=== PATIENT | female | born 1995 | race Hispanic/Latino ===

== ENCOUNTER 2019-09-03 20:07 | Emergency (ER) | payer OTHER, SELFPAY | END 2019-09-03 20:52 | disposition home or self-care (01) | LOC: MADERS 20:07 | DX: R51 Headache (principal); R03.0 Elevated blood-pressure reading, without diagnosis of hypertension; J45.909 Unspecified asthma, uncomplicated | CPT/HCPCS: 99283 ==

== ENCOUNTER 2020-04-04 00:09 | Emergency (ER) | payer OTHER, SELFPAY ==
[2020-04-04 01:24] LABS: #Basophils 0.1 thou/uL (0.0-0.2); #Eosinphils 0.2 thou/uL (0.0-0.7); #Lymphocytes 2.7 thou/uL (1.20-3.40); #Monocytes 0.9 thou/uL (0.11-0.59); #Neutrophils 5.4 thou/uL (1.40-6.50); %Basophils 0.9 % (0.0-1.0); %Eosinophils 2.4 % (0.0-10.0); %Lymphocytes 28.9 % (21.0-51.0); %Monocytes 9.4 % (0.0-10.0); %Neutrophils 58.3 % (42.0-75.0); Hemoglobin 13.8 g/dL (12.0-16.0); Mean Corpuscular HGB CONC 32.6 g/dL (32.0-36.0); Mean Corpuscular Hemoglobin 28.7 pg (27.0-31.0); Mean Corpuscular Volume 88.1 fL (78.0-98.0); Mean Platelet Volume 6.8 fL (7.4-10.4); Platelet Count 300 thou/uL (130-400); RBC Distribution Width 11.3 % (11.5-14.5); White Blood Cell (WBC) Count 9.2 thou/uL (4.8-10.8)
[2020-04-04 02:02] LABS: Bilirubin Negative (Negative); Blood, Urine Negative (Negative); Clarity Clear (Clear); Glucose, Urine (Dipstick) Negative (Negative); Ketone, Urine Negative (Negative); Leukocyte Negative (Negative); Nitrite Negative (Negative); Protein, Urine (Dipstick) Negative (Neg-Trace); Urobilinogen 0.2 mg/dL (Less than 2)
== END 2020-04-04 02:45 | disposition home or self-care (01) ==
LOC: MADERS 00:09
DX: O99.89 Other specified diseases and conditions complicating pregnancy, childbirth and the puerperium (principal); R10.2 Pelvic and perineal pain; O99.511 Diseases of the respiratory system complicating pregnancy, first trimester; J45.909 Unspecified asthma, uncomplicated; Z3A.01 Less than 8 weeks gestation of pregnancy
CPT/HCPCS: 81003; 84702; 85025; 99284

== ENCOUNTER 2024-04-06 03:08 | Emergency (ER) | payer MEDICAID, OTHER ==
[2024-04-06] MEDS ORDERED: diphenhydrAMINE 50 MG/ML VIAL ONE (03:34)
[2024-04-06] MEDS ORDERED: Albuterol 2.5 MG (3 mL) NEB ONE (03:34)
[2024-04-06] MEDS ORDERED: Famotidine/PF 20 mg/2ml Vial ONE (03:35)
[2024-04-06] MEDS ORDERED: methylPREDNISolone Sod Succ/PF 125 MG/2 ML VIAL ONE (03:35)
== END 2024-04-06 06:30 | disposition home or self-care (01) ==
LOC: MADERS 03:08
DX: O99.712 Diseases of the skin and subcutaneous tissue complicating pregnancy, second trimester (principal); L50.0 Allergic urticaria; Z3A.19 19 weeks gestation of pregnancy
CPT/HCPCS: 94640; 96374; 96375; J1200; J2930; J7611; S0028